=== PATIENT | male | born 1940 | race Caucasian/White ===

== ENCOUNTER 2016-10-08 09:26 | Emergency (ER) | payer MEDICARE ==
[2016-10-08 09:33] VITALS: BP 116/73
--- OUTSIDE RECORDS SUMMARY | 2016-10-08 09:35 | XMS REPORT | Continuity of Care Document ---
:1940 Author Organization [facility] ([facility]) Address [address] [place] [address] Phone [phone] Care Team Providers Name Role Phone Jethro Cameron Primary Care Provider [phone] Source Comments This disclosure is being made pursuant to the Care Everywhere program, applicable federal and state laws, and may not contain all informaitonavailable regarding this patient.[facility] ([facility]) Active Allergies and Adverse Reactions Allergen Noted Date Severity Reactions Comments Morphine 11/21/2014 Unknown Current Medications Prescription Sig. Disp. Refills Start Date End Date Status KLOR-CON M20 20 mEq Take 20 mEq by 11/17/2014 Active tablet mouth daily aspirin 81 mg EC Take 81 mg by Active tablet mouth daily tamsulosin 0.4 mg Take 0.4 mg by Active capsule mouth daily LISINOPRIL 5 mg TAKE 1 TABLET 90 tablet 3 12/31/2015 Active tablet DAILY METOPROLOL TAKE 1 TABLET 90 tablet 3 12/31/2015 Active succinate 50 mg XL DAILY (REPLACES tablet METOPROLOL TARTRATE) AMIODARONE 200 mg TAKE 1 TABLET 90 tablet 12 04/07/2016 Active tablet DAILY PRAVASTATIN 80 mg TAKE 1 TABLET 90 tablet 3 04/15/2016 Active tablet DAILY FUROSEMIDE 40 mg TAKE 1 TABLET 180 tablet 2 04/16/2016 Active tablet (40 MG) EVERY MORNING AND EVERY EVENING NEEDED FOR 3 POUND WEIGHT GAIN, EDEMA OR BLOATING LEVOTHYROXINE 50 TAKE 1 TABLET 90 tablet 1 05/07/2016 Active mcg tablet EVERY MORNING BEFORE BREAKFAST multivitamin tablet Take 1 Tab by Discontinued mouth daily 7 Active Problems Problem Noted Date Hypothyroidism, secondary to amiodarone use 06/19/2015 Sick sinus syndrome 12/18/2014 Essential hypertension 12/18/2014 ICD (implantable cardioverter-defibrillator), dual, in situ, [facility] 2014 Medical PVT (paroxysmal ventricular tachycardia) 11/21/2014 IHSS (idiopathic hypertrophic subaortic stenosis) 11/21/2014 Hyperlipidemia 11/21/2014 Degenerative joint disease 11/21/2014 Depression 11/21/2014 GERD (gastroesophageal reflux disease) 11/21/2014 ALFREDA (obstructive sleep apnea) 11/21/2014 Primary pulmonary hypertension 11/21/2014 Resolved Problems Problem Noted Date Resolved Date Hypertension 11/21/2014 12/18/2014 Most Recent Encounters Date Type Specialty Providers Description 09/24/2016 Office Visit [facility] Andrea Clinton, Dx: IHSS ( idiopathic MD hypertrophic subaortic stenosis) (Primary Dx) 08/20/2016 Telephone [facility] Romelia Kelsey ARNP Chief Comp: Results 08/19/2016 Office Visit [facility] Romelia Kelsey ARNP Dx: IHSS ( idiopathic hypertrophic subaortic stenosis) (Primary Dx) Social History Tobacco Use Types Packs/Day Years Used Date Never Smoker Last Filed Vital Signs Vital Sign Reading Time Taken Blood Pressure 126/64 09/24/2016 11:54 AM CDT Pulse 70 09/24/2016 11:54 AM CDT Temperature - - Respiratory Rate 14 06/19/2015 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 Height 1.778 m (5' 10") 09/24/2016 11:54 AM CDT Weight 87.454 kg (192 lb 12.8 oz) 09/24/2016 11:54 AM CDT Body Mass Index 27.66 09/24/2016 11:54 AM CDT Oxygen Saturation 98% 09/24/2016 11:54 AM CDT Plan of Care Date Type Specialty Providers Description 02/17/2017 Appointment [facility] Romelia Kelsey ARNP [address] [place] [address] [phone] (Fax) Chief Comp: Patient Shahab Lino MD [address] [place] [address] [phone] (Fax) Reported Reason For Visit 10/21/2017 Appointment [facility] Andrea Clinton, Subj: Appointment Scheduled [address] [place] [address] [phone] (Fax) Health Maintenance Due Date Last Done Comments Hepatitis B Vaccine (1 of 3 - Primary Series) 1940 Tdap Vaccine 1951 Lipid Disorder Screening 1958 Td Vaccine 1958 Colonoscopy 1990 Zoster Vaccine 2000 Pneumococcal Vaccine (1 of 2 - PCV13) 2005 Influenza Vaccine: Seasonal (Season Ended) 2016 Results from Last 3 Months Not on file
== END 2016-10-08 09:32 | disposition home or self-care (01) ==
LOC: ER 09:26
DX: Z01.30 Encounter for examination of blood pressure without abnormal findings (principal)

== ENCOUNTER 2017-03-31 11:19 | Emergency (ER) | payer MEDICARE ==
[2017-03-31 12:09] LABS: Hemoglobin 15.7 gm/dL (13.5-18.0); Mean Cell Volume 91.8 fl (78-100); Mean Corpuscular Hgb Conc 34.9 g/dl (32-36); Mean Platelet Volume 11.2 fl (6.0-9.5); Neutrophil # 3.4 K/mm3 (1.3-6.0); Neutrophil % 58.7 % (42-75.0); Platelet Count 123 K/mm3 (150-450); Red Cell Distribution Width 13.5 % (11.5-14.0); White Blood Count 5.8 K/mm3 (4.0-10.5)
[2017-03-31 12:26] LABS: Anion Gap 11.4 mmol/L (6.8-13.8); BUN/Creatinine Ratio 11.6 (9.0-21.6); Bilirubin, Total 1.3 mg/dL (0.0-1.1); Ca. Corrected For Albumin 8.8 mg/dL (8.4-10.2); Calcium * 9.1 mg/dL (7.9-10.9); Carbon Dioxide 31.1 mmol/L (24-32.6); Potassium 4.5 mmol/L (3.4-4.6); Total Protein 7.3 gm/dL (6.2-8.2); Troponin I 0.022 ng/ml (0.00-0.10)
--- NOTE | 2017-03-31 13:01 | ERNOTE ---
Chest Pain/Cardiac HPI Chief Complaint: Chest Pain Time Seen by Provider: 03/31/17 11:21 Source: patient, family Exam Limitations: no limitations Immunizations: IMMUNIZATION HX Immunizations Up to Date Yes History of Influenza Vaccine Yes Hx Pneumococcal Vaccination Yes Allergies/Adverse Reactions: Allergies morphine Allergy (Unknown, Verified 12/22/14 12:38) Home Medications: HOME MEDICATIONS Aspirin [[place] Aspirin] 81 mg PO DAILY 08/24/13 [Last Taken 06/05/14] Tamsulosin HCl 0.4 mg PO DAILY 08/24/13 [Last Taken Unknown] Amiodarone HCl [Cordarone] 200 mg PO DAILY 12/06/13 [Last Taken 06/05/14] Lisinopril [Zestril] 5 mg PO DAILY 12/06/13 [Last Taken 06/05/14] Metoprolol Tartrate [Lopressor] 50 mg PO DAILY 12/06/13 [Last Taken 06/05/14] Furosemide [Lasix] 40 mg PO DAILY #30 tablet 12/08/13 [Last Taken 06/05/14] Potassium Chloride [K-Dur] 20 meq PO DAILY #30 tablet.sa 12/08/13 [Last Taken ] Acetaminophen [Tylenol] 500 mg PO Q6H PRN 05/31/14 [Last Taken 06/05/14] Multivitamins [Multivitamin [place]] 1 cap PO DAILY 05/31/14 [Last Taken 06/05/14 ] Pravastatin Sodium [Pravachol] 80 mg PO DAILY 12/22/14 [Last Taken Unknown] Narrative: Patient said 3 days of left-sided chest pain with left arm pain. He rates the pain as mild to moderate intensity and never completely goes away. Patient has had a cardiac cath in the past which was negative for any disease, however it was over 10 years ago according to the . Patient denies any shortness of breath or diaphoresis. Timing: constant, intermittent Severity/Quality: mild Location: left chest Chest Pain Radiation: arms - left Activities at Onset: none Modifying Factors - Improves: Present: nothing Modifying Factors - Worsens: Present: nothing Nitro Today/Relief: no nitro taken today Aspirin Treatment Today: 81 mg x 4, provided by ED Associated Symptoms: Present: denies symptoms Prior Chest Pain/Cardiac Workup: Reports: non-cardiac Review of Systems - Review of Systems Constitutional: Present: See HPI EYE: Present: no symptoms reported ENT: Present: no symptoms reported Respiratory: Present: no symptoms reported Cardiology: Present: See HPI Gastrointestinal/Abdominal: Present: no symptoms reported Genitourinary: Present: no symptoms reported Musculoskeletal: Present: no symptoms reported Skin: Present: no symptoms reported Neurological: Present: no symptoms reported Endocrine: Present: no symptoms reported Hematologic/Lymphatic: Present: no symptoms reported Psych: Present: no symptoms reported - Patient's Past Medical History Patient History - Medical: Hypothyroidism Patient History - Cardiac/Respiratory: CHF, Hypertension, Hyperlipidemia, Other - hypertrophic cardiomyopathy Patient History - Cancer: No Hx of Cancer Patient History - Surgical Procedures: Pacemaker - and defibrillator Patient History - Other: None - Social History Living Situations: spouse Abuse History: No History of abuse Psych History: No pertinent hx Smoking Status: Never smoker Have you smoked in the past 12 months: No Do you dip or chew tobacco: No Alcohol Use: none Drug Use: none - Immunizations Immunizations Up to Date: Yes Hx Pneumococcal Vaccination: Yes History of Influenza Vaccine: Yes Physical Exam - Physical Exam General Appearance: Present: wd/wn, alert, no apparent distress Eye Exam: Normal inspection: bilateral, PERRL: bilateral Ears, Nose, Throat: Present: normal ENT inspection, H, normal pharynx Neck: Present: normal inspection, nontender Respiratory: Present: no respiratory distress, normal breath sounds, no accessory muscle use, chest nontender, lungs clear Cardiovascular/Chest: Present: regular rate, rhythm, no murmur, normal peripheral pulses Gastrointestinal/Abdominal: Present: normal bowel sounds, nontender, nondistended, soft, no organomegaly Rectal Exam: Present: deferred Back Exam: Present: normal inspection, normal range of motion Extremity Exam: Present: normal inspection, non-tender, no edema, normal range of motion Neurological Exam: Present: alert, oriented, normal mood/affect Skin Exam: Present: normal color, warm/dry Lymphatic Exam: Present: no adenopathy ED Progress - Results and Orders Patient's Lab Results:: I have reviewed the patient's lab results. - Vital Signs Patient's Vital Signs:: I have reviewed the patient's vital signs. Vital Signs: Vital Signs 03/31/17 03/31/17 11:21 12:09 Temperature 36.6 C Pulse Rate 65 71 Respiratory 14 14 Rate Blood Pressure 132/72 118/62 O2 Sat by Pulse 97 99 Oximetry - EKG EKG: other - paced rhythm EKG read: Interp. by me - X-Ray X-Ray #1 X-Ray: chest Interpretation: Reviewed by me - Progress/Reassessment Chief Complaint: Chest Pain Plan - Plan Plan: Given that the patient has had his difficulties for 3 days and he has a negative troponin as well as an unremarkable EKG and chest x-ray I am not convinced that this is cardiac in origin. Patient will be referred back to Dr. Cameron for further outpatient testing as he deems necessary. I will call Dr. Cameron to keep him up to speed on what is transpiring Departure Clinical Impression: Acute chest wall pain, Atypical chest pain - Departure Disposition: Home self-care Condition: Good Instructions: Chest Wall Pain, [id number] Referrals: Jethro Cameron DO [Primary Care Provider] - Andrea Clinton MD [Associate] -
[2017-03-31 13:12] VITALS: BP 116/65
[2017-03-31 15:02] LABS: Magnesium 2.3 mg/dL (1.2-2.8)
== END 2017-03-31 13:05 | disposition home or self-care (01) ==
LOC: ER 11:19
DX: R07.89 Other chest pain (principal); E78.5 Hyperlipidemia, unspecified; I10 Essential (primary) hypertension; I50.9 Heart failure, unspecified; Z95.0 Presence of cardiac pacemaker